=== PATIENT | female | born 1955 | race Caucasian/White ===

== ENCOUNTER 2020-07-26 13:50 | Emergency (ER) | payer BC ==
[~2020-07-26] VITALS: Ht 160 cm; Wt 78.0 kg
[2020-07-26] MEDS ORDERED: HYDROCODONE/ACETAMINOPHEN 5-325 MG TABLET PO ONE (15:15)
[2020-07-26] MEDS ORDERED: LIDOCAINE 2%/EPI 1:200,000/PF 10 ML VIAL ID ONE (15:15)
[2020-07-26] MEDS ORDERED: SODIUM CHLORIDE 0.9% 250 ML IRRIG SOLUTION BOTTLE IRRIG ONE (15:15)
[2020-07-26] MEDS ORDERED: PERTUSS(ACELL),DIPH,TET VAC/PF 0.5 ML SYRINGE IM ONE (15:15)
[2020-07-26] MEDS ORDERED: BACITRACIN 0.9 GM PACKET OINTMENT TP ONE (18:30)
[2020-07-26 18:38] VITALS: BP 154/60
== END 2020-07-26 19:35 | disposition home or self-care (01) ==
LOC: EMS 14:12
DX: S82.002A Unspecified fracture of left patella, initial encounter for closed fracture (principal); S01.81XA Laceration without foreign body of other part of head, initial encounter; W01.198A Fall on same level from slipping, tripping and stumbling with subsequent striking against other object, initial encounter; Y93.89 Activity, other specified; Y92.89 Other specified places as the place of occurrence of the external cause; Y99.8 Other external cause status
CPT/HCPCS: 12013; 29505; 70450; 72125; 90471; 90715; 99285